=== PATIENT | male | born 2000 | race Caucasian/White ===

== ENCOUNTER 2022-01-23 21:32 | Emergency (ER) | payer MEDICAID, OTHER | END 2022-01-23 21:35 | disposition left against medical advice (07) | LOC: ED 21:32 | DX: Z53.21 Procedure and treatment not carried out due to patient leaving prior to being seen by health care provider (principal) ==

== ENCOUNTER 2022-03-12 08:07 | Emergency (ER) | payer MEDICAID ==
[2022-03-12 08:16] VITALS: BP 141/81
--- NOTE | 2022-03-12 08:57 | ED Physician Documentation ---
PD HPI URI - Stated complaint Stated Complaint: SOA - Chief complaint Chief Complaint: Resp - History obtained from History obtained from: Patient - Additional information Additional information: The patient comes to the emergency department chief complaint of runny nose, cough, and congestion for the last couple of days. He states that his chest feels heavy and sometimes feels like there is mucus stuck in there and it is hard to breathe. He denies any chest pain. No nausea or vomiting. No diarrhea. The patient has had on and off fevers. Review of Systems Ten Systems: 10 systems reviewed and negative Constitutional: reports: Reviewed and negative Eyes: reports: Reviewed and negative Ears: reports: Reviewed and negative Nose: reports: Rhinorrhea / runny nose, Congestion Throat: reports: Reviewed and negative Cardiac: reports: Reviewed and negative Respiratory: reports: Cough GI: reports: Reviewed and negative : reports: Reviewed and negative Skin: reports: Reviewed and negative Musculoskeletal: reports: Reviewed and negative Neurologic: reports: Reviewed and negative Psychiatric: reports: Reviewed and negative Endocrine: reports: Reviewed and negative Immunocompromised: reports: Reviewed and negative PD PAST MEDICAL HISTORY - Past Medical History Past Medical History: Yes Cardiovascular: None Respiratory: Sleep apnea Neuro: None Endocrine/Autoimmune: None GI: None : None HEENT: None Psych: ADD/ADHD Musculoskeletal: None Derm: None - Past Surgical History Past Surgical History: Yes HEENT: Other - Present Medications Home Medications: Ambulatory Orders Medication Instructions Recorded Confirmed Dextroamphetamine/Amphetamine 10 mg PO DAILY 03/12/22 03/12/22 [Dextroamp-Amphetamine 5 mg Tab] Lisdexamfetamine Dimesylate 60 mg ORAL DAILY 03/12/22 03/12/22 [Vyvanse] - Allergies Allergies/Adverse Reactions: Allergies Allergy/AdvReac Type Severity Reaction Status Date / Time No Known Drug Allergies Allergy Verified 03/12/22 08:13 - Social History Does the pt smoke?: No Smoking Status: Never smoker Does the pt drink ETOH?: Yes ETOH Use: Other Does the pt have substance abuse?: Yes Substance Use and Type: Marijuana - Immunizations Immunizations are current?: No Immunizations: Other immun not current PD ED PE NORMAL - Vitals Vital signs reviewed: Yes - General General: Alert and oriented X 3, No acute distress, Well developed/nourished - HEENT HEENT: Atraumatic, PERRL, EOMI, Moist mucous membranes - Neck Neck: Supple, no meningeal sign - Cardiac Cardiac: RRR, No murmur, Strong equal pulses - Respiratory Respiratory: No respiratory distress, Clear bilaterally - Abdomen Abdomen: Soft, Non tender, Non distended - Derm Derm: Normal color, Warm and dry, No rash - Extremities Extremities: No deformity, No edema - Neuro Neuro: Alert and oriented X 3 - Psych Psych: Normal mood, Normal affect Results - Vitals Vitals: Oxygen O2 Source Room air PD MEDICAL DECISION MAKING - ED course Complexity details: considered differential, d/w patient ED course: I advised the patient that he most likely has been many viral illnesses that are going around right now and causing such symptoms. We have discussed home management of the symptoms, as well as the usual indications for follow-up and return. Departure - Departure Disposition: 01 Home, Self Care Clinical Impression: Acute viral syndrome Condition: Stable Instructions: ED Viral Syndrome Comments: Your symptoms are consistent with one and many viral illnesses that have been going around lately in the community. While there are number of different viruses that can be responsible, and they all cause more or less the same symptoms and have to be expelled by her body on its own. Antibiotics, unfortunately, are not helpful. You may take ibuprofen and Tylenol if needed for aches and fevers. Tylenol/acetaminophen may be taken 650 mg every 4 hours, as needed, and ibuprofen may be taken 600 mg every 6 hours as needed. The medications are unrelated and can be taken together. Please also get plenty of rest and drink a lot of fluid. You should drink at least 8 to 10 cups of water per day to stay hydrated. Forms: Activity restrictions Discharge Date/Time: 03/12/22 09:15
== END 2022-03-12 09:15 | disposition home or self-care (01) ==
LOC: ED 08:07
DX: B34.9 Viral infection, unspecified (principal)
CPT/HCPCS: 99281; 99282